=== PATIENT | female | born 1995 | race Caucasian/White ===

== ENCOUNTER 2016-08-11 11:40 | Emergency (ER) | payer OTHER, MEDICAID ==
[~2016-08-11] VITALS: Ht 165.1 cm; Wt 47.7 kg
[~2016-08-11 11:40] MED LIST: BENT20TA PO; PANT20 PO
[2016-08-11 11:41] VITALS: BP 124/65; PULSE 85; RESP 16; TEMP 98.6; O2SAT 98
[2016-08-11] MEDS ORDERED: ACETAMINOPHEN/HYDROcodone 325 MG/5 MG TAB PO ONE (12:45)
[2016-08-11 13:19] LABS: AUTOMATED NEUTROPHIL # 5.3 TH/MM3 (1.8-7.7); BASOPHIL % 0.3 % (0.0-2.0); EOSINOPHIL # 0.1 TH/MM3 (0-0.4); EOSINOPHIL % 1.2 % (0.0-4.0); HEMATOCRIT 38.3 % (35.0-46.0); HEMO FLAGS DIFF FINAL; LYMPHOCYTE # 2.6 TH/MM3 (1.0-4.8); MEAN CELL VOLUME 78.1 FL (80.0-100.0); MEAN CORPUSCULAR HEMOGLOBIN 25.9 PG (27.0-34.0); MEAN CORPUSCULAR HGB CONC 33.2 % (32.0-36.0); MONO % 6.3 % (0.0-8.0); NEUT % 62.2 % (16.0-70.0); PLATELET COUNT 447 TH/MM3 (150-450); RED CELL DISTRIBUTION WIDTH 15.4 % (11.6-17.2); WHITE BLOOD COUNT 8.6 TH/MM3 (4.0-11.0)
--- NOTE | 2016-08-11 13:20 | PD ---
HPI Chief Complaint: Flank/Kidney Pain Time Seen by Provider: 13:13 Travel History International Travel<30 days: No Contact w/Intl Traveler<30days: No Traveled to known affect area: No History of Present Illness HPI 21-year-old female that presents to the ED for evaluation of right-sided right upper quadrant pain and flank pain. Per patient she's had this for about 8 months. Per patient she's been seen at different hospitals and had multiple scans as well as ultrasounds which have been all negative except for an 11 mm stone in her right kidney that has not moved as well as per patient she was admitted to [facility] on 2 weeks ago and was diagnosed with "floating kidney". Per patient she was told the times a day and had the diagnostic equipment to diagnose her or treat her disease at that facility. Per patient she was told that she needed to follow with outpatient urologist. Per patient she has an appointment with a urologist outpatient but she states that the pain got more severe today so she sick to come here. Per patient she was told by the previous hospital that she should come here because we've apparently have the resources to diagnose the "floating kidney". She rates her pain is 8 out of 10. She denies any blood in the urine or polyuria or dysuria. She denies any injury. Per patient although symptoms started immediately after having her last child. She was actually seen here in 2016 for evaluation of something similar and she was diagnosed with kidney stones. She is allergic to Toradol. She currently has no PCP but she does tell me that she has insurance and again she does have follow with a urologist but she cannot tell me the name of this urologist. PFSH Past Medical History Medical History: Denies Significant Hx Diminished Hearing: No Kidney Stones: Yes Tetanus Vaccination: > 5 Years Influenza Vaccination: No ?: Unknown LMP: JUL 2016 : 2 Para: 2 Miscarriage: 0 : 0 Past Surgical History Surgical History: No Previous Surgery Social History Alcohol Use: No Tobacco Use: No Substance Use: No Allergies-Medications (Allergen,Severity, Reaction): Coded Allergies: Toradol (Verified Allergy, Unknown, 05/08/16) Reported Meds & Prescriptions Reported Meds & Active Scripts Active Lortab (Hydrocodone-Acetaminophen) 5-325 Mg Tab 1 Tab PO Q6H PRN Bentyl (Dicyclomine HCl) 20 Mg Tab 20 Mg PO TID Protonix (Pantoprazole Sodium) 20 Mg Tab 20 Mg PO DAILY Review of Systems General / Constitutional: No: Fever, Chills, Weight Gain, Weight Loss, Other Eyes: No: Diploplia, Blurred Vision, Photophobia, Drainage, Redness, Foreign Body Sensation, Pain, Tearing, Blind Spots, Visual changes, Blindness, Other HENT: No: Headaches, Vertigo, Lightheadedness, Sore Throat, Rhinitis, Rhinorrhea, Congestion, Nosebleed, Neck Stiffness, Neck Pain, Masses, Gingival Bleeding, Dental Difficulties, Ear Discharge, Earache, Other Cardiovascular: No: Chest Pain or Discomfort, Palpitations, Irregular Rhythm, Tachycardia, Diaphoresis, Syncope, Dyspnea on exertion, Varicosities, Edema, Cyanosis, Varicosities, Phlebitis, Claudication, Other Respiratory: No: Cough, Shortness of Breath, Wheezing, Sneezing, Orthopnea, Hemoptysis, Stridor, Night Sweats, Pleuritic Pain, Other Gastrointestinal: Positive: Abdominal Pain, No: Nausea, Vomiting, Diarrhea, Hematemesis, Hematochezia, Constipation, Changes in Bowel Habits, Indigestion, Dysphagia, Loss of Appetite, Other Genitourinary: Positive: Flank Pain, No: Urgency, Frequency, Dysuria, Nocturia , Hematuria, Decreased Urinary Output, Oliguria, Hesitancy, Dribbling, Incontinence, Pelvic Pain, Dyspareunia, Discharge, Dysmenorrhea, Menorrhagia, Metorrhagia, Vaginal Bleeding, Other Musculoskeletal: No: Myalgias, Arthralgias, Limited ROM, Weakness, Cramping, Edema, Pain, Atrophy, Other Skin: No Rash, No Itching, No Dryness, No Lumps, No Hives, No Change in Pigmentation, No Change in nails, No Alopecia, No Lesions, No Breast Lumps, No Breast Tenderness, No Breast Swelling, No Other Neurologic: No: Weakness, Dizziness, Syncope, Focal Abnormalities, Coordination Problem, Tremor, Ataxia, Headache, Change in Mentation, Slurred Speech, Paresthesia, Incontinence, Seizures, Sensory Disturbance, Other Psychiatric: No: Anxiety, Depression, Suicidal Ideations, Disorder of Thought, Mood Disorder, Substance Abuse, Homicidal Ideation, Other Endocrine: No: Heat Intolerance, Cold Intolerance, Polyuria, Polydipsia, Other Hematologic/Lymphatic: No: Easy Bruising, Lymph Node Enlargement, Other Physical Exam Narrative GENERAL: SKIN: Warm and dry. HEAD: Atraumatic. Normocephalic. EYES: Pupils equal and round. No scleral icterus. No injection or drainage. ENT: No nasal bleeding or discharge. Mucous membranes pink and moist. Tongue is midline. No uvula deviation. NECK: Trachea midline. No JVD. CARDIOVASCULAR: Regular rate and rhythm. No murmurs, S3, S4. RESPIRATORY: No accessory muscle use. Clear to auscultation. Breath sounds equal bilaterally. GASTROINTESTINAL: Abdomen soft, non-tender, nondistended. Hepatic and splenic margins not palpable. MUSCULOSKELETAL: Extremities without clubbing, cyanosis, or edema. No obvious deformities. Full range of motion of the upper and lower extremities bilaterally. 2+ pulses bilaterally. NEUROLOGICAL: Awake and alert. No obvious cranial nerve deficits. Motor grossly within normal limits. Five out of 5 muscle strength in the arms and legs. Normal speech. PSYCHIATRIC: Appropriate mood and affect; insight and judgment normal. Data Data Last Documented VS Vital Signs Date Time Temp Pulse Resp B/P Pulse Ox O2 Delivery O2 Flow Rate FiO2 08/11/16 15:19 64 16 107/63 99 Room Air 08/11/16 11:41 98.6 Orders Complete Blood Count With Diff (08/11/16 12:41) Basic Metabolic Panel (Bmp) (08/11/16 12:41) Urinalysis - C+S If Indicated (08/11/16 12:41) Ed Urine Pregnancytest Poc (08/11/16 12:41) Acetamin-Hydrocod 325-5 Mg ([place] 5-325 (08/11/16 12:45) Morphine Inj (Morphine Inj) (08/11/16 14:15) Us Kidney/Renal/Bladder (08/11/16 ) Labs Laboratory Tests Test 08/11/16 08/11/16 13:00 13:05 White Blood Count 8.6 TH/MM3 Red Blood Count 4.90 MIL/MM3 Hemoglobin 12.7 GM/DL Hematocrit 38.3 % Mean Corpuscular Volume 78.1 FL Mean Corpuscular Hemoglobin 25.9 PG Mean Corpuscular Hemoglobin 33.2 % Concent Red Cell Distribution Width 15.4 % Platelet Count 447 TH/MM3 Mean Platelet Volume 7.0 FL Neutrophils (%) (Auto) 62.2 % Lymphocytes (%) (Auto) 30.0 % Monocytes (%) (Auto) 6.3 % Eosinophils (%) (Auto) 1.2 % Basophils (%) (Auto) 0.3 % Neutrophils # (Auto) 5.3 TH/MM3 Lymphocytes # (Auto) 2.6 TH/MM3 Monocytes # (Auto) 0.5 TH/MM3 Eosinophils # (Auto) 0.1 TH/MM3 Basophils # (Auto) 0.0 TH/MM3 CBC Comment DIFF FINAL Differential Comment Sodium Level 142 MEQ/L Potassium Level 4.6 MEQ/L Chloride Level 106 MEQ/L Carbon Dioxide Level 29.1 MEQ/L Anion Gap 7 MEQ/L Blood Urea Nitrogen 16 MG/DL Creatinine 0.74 MG/DL Estimat Glomerular Filtration 98 ML/MIN Rate Random Glucose 79 MG/DL Calcium Level 9.1 MG/DL Urine Color LIGHT-YELLOW Urine Turbidity CLEAR Urine pH 7.0 Urine Specific [place] 1.016 Urine Protein NEG mg/dL Urine Glucose (UA) NEG mg/dL Urine Ketones NEG mg/dL Urine Occult Blood MOD Urine Nitrite NEG Urine Bilirubin NEG Urine Urobilinogen LESS THAN 2.0 MG/DL Urine Leukocyte Esterase NEG Urine RBC 71 /hpf Urine WBC 3 /hpf Urine Squamous Epithelial 2 /hpf Cells Urine Mucus FEW /lpf Microscopic Urinalysis Comment CULT NOT INDICATED MDM Medical Decision Making Medical Screen Exam Complete: Yes Emergency Medical Condition: Yes Medical Record Reviewed: Yes Interpretation(s) CBC & BMP Diagram 08/11/16 13:00 UA showed some blood. Last Impressions Renal Ultrasound 08/11/16 0000 Signed Impressions: Service Date/Time: Thursday, August 11, 2016 15:49 - CONCLUSION: 1. Bilateral nonobstructing renal calcifications. Right renal cyst. No hydronephrosis. Bladder unremarkable. Oneal Silva MD Differential Diagnosis Flank pain versus chronic pain versus nephrolithiasis versus floating kidney versus pain control Narrative Course 21-year-old female that presents to the ED for evaluation of flank pain. Patient was properly examined and was found to have signs and symptoms consistent with appears to be right upper quadrant pain with flank pain. She does have a history of kidney stones in the past. She tells me that she was seen at a different hospital and diagnosed with "floating kidney" she was told to follow urologist for this. She has not done so. Per patient the pain worsened today so she came here. Patient states that she's had multiple scans and ultrasounds which all been negative. At this time I recommend basic lab work, Lortab for pain and to get records from the previous hospital to see what she was actually diagnosed with. Labs and imaging were essentially unremarkable here. I actually reviewed the records from her hospital admission from [facility] and I found that her diagnosis was actually kidney stone that required outpatient follow-up for possible removal of the 1 cm stone. I do not see any mention of the floating kidney. At this time my attending evaluated the patient and agrees the patient can be safely discharged. Recommendation is for patient to follow with urology as outpatient. I will treat her for her pain with Lortab. She understands that she needs to follow- up outpatient. See ED worsening symptoms. Diagnosis Primary Impression: Nephrolithiasis Additional Impression: Flank pain, acute Referrals: Cruz Salazar MD Patient Instructions: Narcotic given in the ED, General Instructions Additional Instructions: Take medications as prescribed. Labs and everything here came back negative. You have kidney stones and kidney that required treatment by urologist to removed so your pain can improve. He needed to follow with urologist outpatient for evaluation of this as the test that he required to get the kidney stones remove the stone is down outpatient. Med/Other Pt SpecificInfo: Prescription(s) given Scripts Hydrocodone-Acetaminophen (Lortab)5-325 Mg Tab1 Tab PO Q6H PRN (PAIN) #20 TAB Prov:Beverly Romeo DO 08/11/16 Disposition: 01 DISCHARGE HOME Condition: Stable Tommy De Aug 11, 2016 13:20
[2016-08-11 13:28] LABS: BLOOD, URINE MOD (NEG); COMMENT (UR) CULT NOT INDICATED; CULTURE IF INDICATED CULT NOT INDICATED; GLUCOSE,URINE NEG (NEG); KETONE, URINE NEG (NEG); MUCUS URINE FEW /lpf (OCC); NITRITE,URINE NEG (NEG); SQUAMOUS EPITHELIAL CELL URINE 2 /hpf (0-5); URINE COLOR LIGHT-YELLOW (YELLW/STRAW)
[2016-08-11 13:32] LABS: BICARBONATE 29.1 MEQ/L (21.0-32.0); POTASSIUM 4.6 MEQ/L (3.5-5.1)
[2016-08-11] MEDS ORDERED: MORPHINE SULFATE 4 MG/ML INJ IV PUSH ONE (14:15)
[2016-08-11 15:19] VITALS: BP 107/63; PULSE 64; RESP 16; O2SAT 99
--- NOTE | 2016-08-11 17:57 | RADRPT ---
EXAM DATE/TIME: 08/11/2016 15:49 [facility] COMPARISON: No previous studies available for comparison. INDICATIONS : Flank pain. MEDICAL HISTORY : . Renal calculi. Nephroptosis. SURGICAL HISTORY : None. ENCOUNTER: Initial ACUITY: 7-11 months PAIN SCORE: 6/10 LOCATION: Bilateral flank MEASUREMENTS: RIGHT KIDNEY: 11.7 x 5.9 x 3.7 cm LEFT KIDNEY: 11.8 x 5.0 cm FINDINGS: Normal blood flow noted to right kidney. Right kidney contains a 1.7 cm cyst in the lower pole and a 1 cm calcification also in the lower pole, nonobstructing without hydronephrosis. Left kidney contains lower pole calcifications measuring up to 5 mm and 6 diameter, also nonobstructi ng and bladder unremarkable. CONCLUSION: 1. Bilateral nonobstructing renal calcifications. Right renal cyst. No hydronephrosis. Bladder unrema rkable. Oneal Silva MD on August 11, 2016 at 17:54 Board Certified Radiologist. This report was verified electronically.
[2016-08-11] MEDS ORDERED: HYDR-3533 PO (18:12)
[2016-08-11 18:33] VITALS: BP 115/62; PULSE 60; RESP 18; O2SAT 99
== END 2016-08-11 18:53 | disposition home or self-care (01) ==
LOC: NEPA 11:40
DX: N20.0 Calculus of kidney (principal); R10.9 Unspecified abdominal pain; Z87.442 Personal history of urinary calculi
CPT/HCPCS: 76775; 80048; 81001; 84703; 85025; 96374; 99284; J2270